=== PATIENT | female | born 1960 | race Caucasian/White ===

== ENCOUNTER → 2016-12-08 | Outpatient (CLI) | payer OTHER | LOC: YCFC.O 08:26 | PROVIDERS: ATTEND Anesthesiology Pain Medicine | DX: Z79.891 Long term (current) use of opiate analgesic (principal) ==

== ENCOUNTER → 2017-02-03 | Outpatient (CLI) | payer OTHER ==
--- NOTE | 2017-02-03 15:09 | RAD ---
EXAM DESCRIPTION: Thoracic Spine,AP Lateral CLINICAL HISTORY: 56 years Female, PAIN IN THORACIC SPINE COMPARISON: None. FINDINGS: 3 views of the thoracic spine show no vertebral body fracture or subluxation. There are mild degenerative changes at several levels in the thoracic spine including slight disc space narrowing and marginal osteophyte formation. No posterior rib fracture. The gallbladder is surgically absent. There is a small calcification in the left upper lung which probably represents a calcified granuloma. IMPRESSION: Mild degenerative changes at several levels in the thoracic spine, but no acute thoracic spine abnormality. Electronically signed by: Elfego Bello MD 02/03/2017 3:08 PM COOK PIE
== END | disposition home or self-care (01) ==
LOC: RAD 14:25
PROVIDERS: ATTEND Nurse Practitioner Family
DX: M54.6 Pain in thoracic spine (principal)

== ENCOUNTER → 2017-03-03 | Outpatient (CLI) | payer OTHER | END | disposition home or self-care (01) | LOC: MRI 08:47 | PROVIDERS: ATTEND Neurological Surgery | DX: Z79.899 Other long term (current) drug therapy (principal) ==

== ENCOUNTER → 2017-04-28 | Outpatient (CLI) | payer OTHER | END | disposition home or self-care (01) | LOC: YCFC.O 13:24 | PROVIDERS: ATTEND Anesthesiology Pain Medicine | DX: Z79.891 Long term (current) use of opiate analgesic (principal) ==

== ENCOUNTER → 2017-06-23 | Outpatient (CLI) | payer OTHER ==
--- NOTE | 2017-06-24 15:50 | US ---
EXAM DESCRIPTION: Aorta CLINICAL HISTORY: 56 years Female, AAA COMPARISON: December 27, 2015 FINDINGS: 4.3 x 4.1 cm fusiform distal abdominal aortic aneurysm is present. No involvement of the iliacs. IMPRESSION: Enlarging distal abdominal aortic aneurysm. This previously measured 2.7 cm. Yearly follow-up is recommended and vascular consult should be obtained as per best practice recommendations. AAA Size: Follow-up Recommendation (1): 2.6 - 2.9 cm Every 5 years (2) 3.0 - 3.4 cm Every 3 years 3.5 - 3.9 cm Every 12 months 4.0 - 4.4 cm Every 12 months, vasc consult rec 4.5 - 5.4 cm Every 6 months, vasc consult rec >=5.5 cm Referral to vascular surgeon recommended (1)Based upon the Society for Vascular Surgery Guidelines: J Vasc Surg. 2009 Aug;50(4 Suppl):S2-49 (2)For aortas of max emilia of 2.6-2.9 cm that meet criteria for AAA (>= 1.5 x proximal normal segment) Electronically signed by: Juan Diaz MD 06/24/2017 3:44 PM CDT
== END ==
LOC: US 09:42
PROVIDERS: ATTEND Internal Medicine Cardiovascular Disease
DX: I71.4 Abdominal aortic aneurysm, without rupture (principal)

== ENCOUNTER → 2017-12-03 | Outpatient (CLI) | payer OTHER | END | disposition home or self-care (01) | LOC: GMA 17:20 | PROVIDERS: ATTEND Nurse Practitioner Family | DX: L65 Other nonscarring hair loss (principal) ==

== ENCOUNTER → 2018-01-27 | Outpatient (CLI) | payer OTHER ==
--- NOTE | 2018-01-27 11:22 | US ---
EXAM DESCRIPTION: None CLINICAL HISTORY: None COMPARISON: None TECHNIQUE: Grayscale and color Doppler sonographic evaluations of major arteries in both lower extremities. FINDINGS: Major arterial segments of both lower extremities are patent, with predominantly triphasic flow waveforms. Peak systolic flow velocities (in cm/sec) as follows: Right lower extremity, Common femoral artery, 92 Superficial femoral artery proximal, 88 Superficial femoral artery mid, 76 Superficial femoral artery distal, 75 Popliteal artery, 64 Posterior tibial artery, 62 Peroneal artery, 65 Dorsalis pedis artery, 35 Left lower extremity, Common femoral artery, 102 Superficial femoral artery proximal, 97 Superficial femoral artery mid, 74 Superficial femoral artery distal, 53 Popliteal artery, 50 Posterior tibial artery, 72 Peroneal artery, 77 Dorsalis pedis artery, 12 IMPRESSION: Major arterial segments in both lower extremities are patent, without flow limiting stenosis based on velocity criteria Electronically signed by: Jose Velez MD 01/27/2018 11:21 AM MANAGER BACKGROUND
--- NOTE | 2018-01-27 11:29 | US ---
THYROID ULTRASOUND CLINICAL INFORMATION: Nodule TECHNIQUE: Grayscale and color Doppler sonographic evaluations of thyroid gland COMPARISON: None FINDINGS: Right lobe of thyroid gland measures 5.4 x 1.8 x 2.3 cm. Left lobe measures 5.4 x 1.7 x 1.9 cm. Isthmus is 3 mm in maximal depth. Grossly unremarkable echotexture throughout the gland. Several nodules identified in both lobes. One soft tissue nodule in mid right lobe measures 1.1 x 1.3 x 1.2 cm with slightly obscured margins but no posterior acoustic shadowing nor internal vascularity. Another heterogeneously hypoechoic soft tissue nodule in right lower lobe measures 1.6 x 1.4 x 1.0 cm with well-defined margins and heterogeneous posterior acoustic enhancement, with minimal internal vascularity. Two nodules identified in mid left lobe. One such soft tissue nodule with heterogeneously hypoechoic appearance, with ill-defined margins but no posterior acoustic shadowing nor vascularity. Another heterogeneously hypoechoic nodule measures 1.4 x 0.8 x 0.9 cm, with well-defined margins, lack of posterior acoustic shadowing nor internal vascularity. IMPRESSION: Several nodules identified in both lobes of thyroid gland, without concerning sonographic features. Electronically signed by: Jose Velez MD 01/27/2018 11:28 AM ORE ROASTER
--- NOTE | 2018-01-27 11:35 | US ---
EXAM DESCRIPTION:Carotid Duplex CLINICAL HISTORY:BRUIT COMPARISON: None TECHNIQUE: Grayscale and color Doppler sonographic evaluations of carotid and vertebral arterial segments of the neck. FINDINGS: Carotid and vertebral arteries are patent bilaterally with appropriate directions of flow, and biphasic flow waveforms. Minimal calcific atherosclerotic deposition along carotid bulbs and proximal internal carotid arteries. Peak systolic flow velocities (in CM/sec) as follows: Right side, CCA proximal, 60 CCA distal, 89 ICA proximal, 40 ICA mid, 65 ICA distal, 28 ECA proximal, 62 Proximal ICA/distal CCA ratio, 0.5 Left side, CCA proximal, 126 CCA distal, 110 Carotid bulb, ICA proximal, 67 ICA mid, 55 ICA distal, 50 ECA proximal, 69 Proximal ICA/distal CCA ratio, 0.6 IMPRESSION: Carotid and vertebral arteries are patent bilaterally with appropriate directions of flow No focal flow limiting stenosis identified along carotid vessels on either side. Slightly elevated flow velocity in proximal left common carotid artery raises concern of potential more upstream flow limiting stenosis. Electronically signed by: Jose Velez MD 01/27/2018 11:34 AM WOOL SORTER
== END ==
LOC: US 09:12
PROVIDERS: ATTEND Family Medicine
DX: I73.00 Raynaud's syndrome without gangrene (principal); I65.23 Occlusion and stenosis of bilateral carotid arteries; E04.8 Other specified nontoxic goiter; E04.1 Nontoxic single thyroid nodule

== ENCOUNTER → 2018-03-19 | Outpatient (CLI) | payer OTHER ==
--- NOTE | 2018-03-20 23:12 | MRI ---
EXAM DATE: 03/19/2018 12:00 AM CDT. PROCEDURE: MR BRAIN WITHOUT THEN WITH IV CONTRAST. INDICATION: VERTEBROBASILAR DOLICHOECTASIA. COMPARISON: MRI brain 01/31/2016. TECHNIQUE: Multiplanar multisequence images of the brain were acquired before and after the administration of intravenous contrast. FINDINGS: The no acute infarct or intracranial hemorrhage. No mass, mass effect, or midline shift. No significant parenchymal signal abnormalities. No abnormal intracranial enhancement. Postcontrast images demonstrate dolichoectasia of the left vertebral artery and the basilar artery. The midline structures including the pituitary, corpus callosum, and cerebellar tonsils are unremarkable. No hydrocephalus. Unremarkable orbits. Scattered mucosal thickening within the paranasal sinuses. Mastoid air cells are well aerated. Unremarkable calvarium. IMPRESSION: Unchanged vertebrobasilar dolichoectasia. Otherwise unremarkable MRI of the brain with and without contrast. Electronically signed by: Leon Pal MD 03/20/2018 11:11 PM CDT
== END ==
LOC: MRI 09:41
PROVIDERS: ATTEND Family Medicine
DX: I65.1 Occlusion and stenosis of basilar artery (principal); I10 Essential (primary) hypertension

== ENCOUNTER → 2018-05-24 | Outpatient (CLI) | payer OTHER | LOC: GMAJ 14:35 | PROVIDERS: ATTEND Family Medicine | DX: I10 Essential (primary) hypertension (principal) ==

== ENCOUNTER → 2019-01-10 | Outpatient (CLI) | payer OTHER | LOC: YCFC.O 16:28 | PROVIDERS: ATTEND Nurse Practitioner Family | DX: R68.89 Other general symptoms and signs (principal) ==

== ENCOUNTER → 2019-02-18 | Outpatient (CLI) | payer OTHER ==
--- NOTE | 2019-02-18 12:58 | MRI ---
EXAM DESCRIPTION: Brain w/wo Contrast CLINICAL HISTORY: VERTEBROBASILAR DOLICHOECTASIA COMPARISON: Previous MRI of the brain March 19, 2018 TECHNIQUE: MRI of the brain is performed according to our usual protocol including multiplanar multi sequence technique. Post gadolinium imaging is performed following IV administration of routine adult dose of gadolinium contrast. FINDINGS: Sagittal T1 images show intact corpus callosum. Normal pituitary gland with normal T1 appearance of the kennedy and medulla and upper cervical cord. Normal signal intensity within the clivus and calvarium. Axial T2 fat sat images reveal preservation of intracranial vascular flow voids. Normal levy matter and white matter T2 signal intensity. Normal ventricles with normal gyral and sulcal fold pattern. The globes appear intact and symmetrical. No abnormal fluid signal in the tympanic cavities or right mastoid air cells. Minimal fluid in the inferior left mastoid air cells. Mucous retention cyst in the left maxillary sinus measures 1.6 cm. 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 Compared to previous study March 19, 2018, the diameter (measured at the same level) was 6 mm, unchanged. Tortuous course crosses along the anteroinferior kennedy. This same course was seen on the previous study. Left vertebral artery is dominant. Axial flair images show normal signal intensity of the levy matter and the white matter. No microvascular ischemic changes. Diffusion weighted images are negative for focal intense increased signal intensity in the brain parenchyma to suggest restricted diffusion. ADC mapping is negative. Axial T1 precontrast images show normal levy-white matter differentiation. No high signal intensity hemorrhagic lesion of the brain parenchyma. No subdural hematoma. Axial susceptibility weighted images are negative for focal signal loss to suggest abnormal brain parenchymal calcification or hemosiderin deposition. After IV contrast, axial T1 images show normal enhancement of intracranial vessels. No enhancing intracranial mass or abnormal parenchymal enhancement to suggest disruption of the blood brain barrier. Coronal T1 postcontrast images show normal dural sinus enhancement with normal enhancement of the pituitary gland. IMPRESSION: Dolichoectasia of the basilar artery unchanged from previous study. Left maxillary sinus mucous retention cyst. Minimal fluid in the inferior left mastoid air cells. Normal MRI appearance of the brain. Electronically signed by: Eliu Carson MD 02/18/2019 12:55 PM CDT
== END ==
LOC: MRI 08:52
PROVIDERS: ATTEND Neurological Surgery
DX: I65.1 Occlusion and stenosis of basilar artery (principal); J34.1 Cyst and mucocele of nose and nasal sinus

== ENCOUNTER → 2019-06-14 | Outpatient (CLI) | payer OTHER ==
--- NOTE | 2019-06-14 20:47 | MRI ---
EXAM DESCRIPTION: Lumbar Spine w/o Contrast : Magnetic Resonance Imaging. CLINICAL HISTORY: SPINAL STENOSIS COMPARISON: None. TECHNIQUE: Multiplanar, multiple standard sequences, non contrast MRI, lumbar spine. FINDINGS: L5-S1: The disc space is completely imaged on T2 weighted axial series #601, image 3. Grade 1 anterolisthesis 3.5 mm. Disc desiccation and minimal disc space loss. Posterior disc partially uncovered. Mild bilateral facet arthrosis with flavum ligaments unremarkable. Canal is patent. Moderate right foraminal narrowing and moderate to severe left foraminal narrowing. Bilateral deformities of the L5 pars interarticulares most likely spondylolysis. L4-L5: Mild disc desiccation. AP canal diameter 4.5 mm. Posterior disc is partially uncovered. Advanced bilateral hypertrophic facet arthrosis and flavum ligament thickening with AP canal diameter 8.5 mm. Bilateral mild foraminal narrowing. Bilateral narrowing of the subarticular recesses. Possible defect of the left L 4 pars interarticularis. L3-L4: Disc space preserved. Minimal disc desiccation with no bulging. Minimal bilateral hypertrophic facet arthrosis and ligament thickening with mild canal narrowing. Mild bilateral foraminal narrowing. Circumscribed hyperintense T1 and T2 signal in the inferior L3 vertebral body consistent with a hemangioma. L2-L3: Normal signal in the disc and disc space preserved. Posterior elements unremarkable. Canal and foramina are patent. Depression of the superior L2 endplate but no marrow edema and no retropulsion of the endplate into the canal. L1-L2: Normal signal in the disc with no posterior bulging. Posterior elements unremarkable. Canal and foramina are patent. Circumscribed hyperintense T1 and T2 signal in the left L1 vertebral body and pedicle consistent with a hemangioma. T12-L1: Minimal disc desiccation. Superior convexity of the inferior T12 endplate. No retropulsion. No marrow edema. No disc bulging. Bilateral foramina are patent. Circumscribed hyperintense T1 and T2 signal in the T12 vertebral body consistent with a hemangioma. Conus terminates at this level. L1-L5 levoscoliosis. Paravertebral soft tissues are unremarkable. Otherwise normal marrow signal in the remaining vertebral bodies and the posterior elements. Vertebral bodies are not acutely or subacutely compressed at any level. IMPRESSION: 1. Multiple levels of the desiccated disc but no significant disc bulging or herniation. Bilateral pars spondylolysis at L5 with grade 1 anterolisthesis at L5-S1. Possible left side pars spondylolysis at L4 with grade 1 anterolisthesis at L4-L5. 2. Severe left foraminal narrowing at L5-S1 could be resulting in left L5 nerve compromise. 3. Mild central canal stenosis at L4-L5 and bilateral narrowing of the subarticular recesses. Correlate for L5 radiculopathy. 4. Depression of the superior L2 endplate and elevation of the inferior T12 endplate could be related to prior compression injuries but no marrow edema associated with these findings. No retropulsion. Electronically signed by: Mohit Alcazar MD 06/14/2019 8:45 PM CDT
--- NOTE | 2019-06-15 08:53 | US ---
EXAM DESCRIPTION: Aorta: Ultrasound. CLINICAL HISTORY: AAA COMPARISON: MRI lumbar spine on the same visit TECHNIQUE: Transcutaneous scanning: Two-dimensional and Doppler modes. FINDINGS: Abdominal aorta diameter - Proximal: 2.9 x 2.0 cm. Mid: 2.9 x 2.3 cm. Distal: 4.7 x 4.4 cm. Common Iliac diameter - Right: 15.8 mm. Left: 20.2 mm. Other: Atherosclerotic irregularity in the aorta and the bilateral common iliac arteries.. IMPRESSION: 1. 4.7 cm abdominal aortic aneurysm. Bilateral common iliac artery aneurysms. Recommend follow-up every 6 months and vascular consultation. Reference: J Am Francis Radiol 2013;10:789-794. Electronically signed by: Mohit Alcazar MD 06/15/2019 8:51 AM CDT
== END ==
LOC: US 07:54
PROVIDERS: ATTEND Family Medicine
DX: I71.4 Abdominal aortic aneurysm, without rupture (principal); I72.3 Aneurysm of iliac artery; M48.062 Spinal stenosis, lumbar region with neurogenic claudication; M51.36 Other intervertebral disc degeneration, lumbar region; M47.896 Other spondylosis, lumbar region; M43.16 Spondylolisthesis, lumbar region; M51.85 Other intervertebral disc disorders, thoracolumbar region

== ENCOUNTER → 2020-04-05 | Outpatient (CLI) | payer OTHER ==
--- NOTE | 2020-04-05 12:26 | MAM ---
EXAM DESCRIPTION: 3D Screening BILATERAL : Digital Mammography. CLINICAL HISTORY: 59 years Female ANNUAL SCREENING . No complaints. No personal or family history of breast cancer. Menarche age unknown. Childbirth age 18. Hysterectomy age unknown. No HRT. Benign left breast biopsy. Lifetime risk of developing breast cancer (Tyrer-Cuzick model)(%): 8.5. COMPARISON: 2-D digital screening bilateral mammography October 2013.. No prior reports available. TECHNIQUE: Bilateral CC and MLO projection full-field images, digital tomosynthesis mammographic technique. Bilateral digital 2-D full-field MLO images. CAD available for 2-D images. FINDINGS: The breast parenchymal density pattern is: Scattered areas of fibroglandular density. No skin thickening or nipple retraction. Skin mole marker posterior right breast. Solitary microcalcifications and coarse calcifications. No new focal, stellate mass or density, focal asymmetry , and no suspicious microcalcifications bilaterally. Stable mammograms compared to prior study. Taking into account, differences in mammographic technique. IMPRESSION: Benign exam. BIRAD CATEGORY: 2 BENIGN FINDINGS. RECOMMENDATIONS: FOLLOW UP: Routine digital bilateral mammographic screening, one year interval from 2019. Written communication explaining the IMPRESSION and follow-up, will be mailed to the patient and referring health care provider. According to the [employer], yearly mammograms are recommended starting at age 40 and continuing as long as a woman is in good health. Any breast change noted on a breast self-exam should be reported promptly to the patient's healthcare provider. Breast MRI is recommended for women with an approximately 20-25% or greater lifetime risk of breast cancer, including women with a strong family history of breast or ovarian cancer and women who have been treated for Hodgkin's disease. A negative mammographic report should not delay tissue diagnosis in patients with significant clinical history or physical findings. Extremely dense breast tissue limits the sensitivity of digital mammography. Electronically signed by: Mohit Alcazar MD 04/05/2020 12:25 PM CDT
== END ==
LOC: MAMMO 10:00
PROVIDERS: ATTEND Family Medicine
DX: Z12.31 Encounter for screening mammogram for malignant neoplasm of breast (principal)

== ENCOUNTER → 2020-09-18 | Outpatient (CLI) | payer OTHER | LOC: GMAJ 14:40 | PROVIDERS: ATTEND Family Medicine | DX: I10 Essential (primary) hypertension (principal); E78.00 Pure hypercholesterolemia, unspecified ==

== ENCOUNTER → 2020-11-07 | Outpatient (CLI) | payer OTHER | LOC: LAB.O 09:36 | PROVIDERS: ATTEND Surgery | DX: R12 Heartburn (principal); E56.9 Vitamin deficiency, unspecified; R53.81 Other malaise; R53.83 Other fatigue; E53.8 Deficiency of other specified B group vitamins; E55.9 Vitamin D deficiency, unspecified; I10 Essential (primary) hypertension; E78.1 Pure hyperglyceridemia; R06.02 Shortness of breath; R60.9 Edema, unspecified; F32.9 Major depressive disorder, single episode, unspecified; E78.00 Pure hypercholesterolemia, unspecified; R40.0 Somnolence; G47.33 Obstructive sleep apnea (adult) (pediatric) ==